=== PATIENT | male | born 1955 | race Caucasian/White ===

== ENCOUNTER 2017-10-05 06:18 | Day surgery (SDC) | payer BC ==
--- NOTE | 2017-10-04 18:39 | PREOPHP ---
DATE OF ADMISSION: 10/05/2017 REASON FOR ADMISSION: A 62-year-old patient is going to be admitted for diagnostic arthroscopy of t he left knee, partial medial and lateral meniscectomy, possibly repair, synovectomy, application of Harry dressing. HISTORY OF PRESENT ILLNESS: This 62-year-old patient has been experiencing knee pain for quite a wh ile. Conservative treatment resulted in limited benefit to the patient, and the patient has reques evan surgical intervention. PAST MEDICAL HISTORY: Hypertension. SOCIAL HISTORY: Nonsmoker, nondrinker. FAMILY HISTORY: Negative. PAST SURGICAL HISTORY: Injection in both knees. MEDICATIONS: 1. Hypertensive medication. 2. Sulindac. 3. B6. 4. B12. 5. Folic acid. 6. Baclofen. 7. Postop Bactrim and ibuprofen given. ALLERGIES: NO HISTORY OF ALLERGY TO MEDICATION. PHYSICAL EXAMINATION: SKIN: Within normal limits. EYES: PERRLA. HEAD AND NECK: Normocephalic. Trachea midline. Bilateral symmetrical carotid pulses. No mass, no bruit, no lymphadenopathy. CARDIOVASCULAR: Normal sinus rhythm. S1, S2 normal. No murmur. No JVD. No peripheral edema. LUNGS: Clear. ABDOMEN: Protuberant. No organomegaly. No mass. Bowel sounds present. GENITOURINARY AND RECTAL: Not done, not pertinent to this admission. MUSCULOSKELETAL: Height of 5 feet 10, weighing 218 pounds. Head and neck unremarkable. Upper extr emities normal with normal neurovascular examination. Spine clear. Both lower extremities look sym metrical in appearance. Range of motion 0 to 125 degrees. There is marked tenderness over the medi al tibiofemoral joint line. Positive Radha test. Sensory, motor, deep tendon reflexes are intac t. IMAGING: Radiologic report of the x-ray of the knees is not available for my interpretation. [facility] knee MRI was done in 2016, was indicative of subluxation of the medial meniscus, mild to modera te joint effusion, chondromalacia patella, synovitis and some chronic . DIAGNOSES: 1. Patellar crepitation, chondromalacia. 2. Internal derangement of right and left knees. 3. Torn menisci of right and left knees. 4. Synovitis of right and left knees. PLAN: Treatment plan, alternatives, risks and benefits discussed. The patient understands possibil ity of complications from surgery such as infection, bleeding, nerve damage, vascular damage, possib ility of deep venous thrombosis, pulmonary embolism, hypersensitivity from medication and even . [place] result may not be obtained depending on known or unknown factor or factors. Formal H and P is supposed to be done by PCP. Dictated By: IZZY SANCHEZ/JOSÉ MIGUEL Conf#: [id number] DID#: [id number]
[~2017-10-05] VITALS: Ht 177.8 cm; Wt 96.9 kg
[2017-10-05] VITALS (13 sets, daily range): BP systolic 113–139; BP diastolic 52–76; PULSE 65–85; RESP 17–22; Ht 177.8 cm; Wt 96.9 kg
[2017-10-05] MEDS ORDERED: ONDANSETRON 4 MG INJ IV PRN (06:30)
[2017-10-05] MEDS ORDERED: EPHEDrine SULFATE 50 MG/5 ML SYG IV PRN (06:30)
[2017-10-05] MEDS ORDERED: hydrALAzine 20 MG INJ IV PRN (06:30)
[2017-10-05] MEDS ORDERED: ATROPINE 1 MG/10 ML SYRINGE IV PRN (06:30)
[2017-10-05] MEDS ORDERED: FENTAnyl 50 MCG/ML VIAL IV PRN ×2 (06:30)
[2017-10-05] MEDS ORDERED: HYDROmorphONE (0.2 MG/ML) 10ML SYG IV PRN ×3 (06:30)
[2017-10-05] MEDS ORDERED: MEPERIDINE 25 MG INJ IV PRN (06:30)
[2017-10-05] MEDS ORDERED: DIPHENHYDRAMINE 50 MG INJ IV PRN (06:30)
[2017-10-05] MEDS ORDERED: morphine (1 MG/ML) 10ML SYRINGE IV PRN ×3 (06:30)
[2017-10-05] MEDS ORDERED: MIDAZOLAM 1 MG/ML 2 ML INJ IV PRN (06:30)
[2017-10-05] MEDS ORDERED: LABETALOL HCL 20MG INJ IV PRN (06:30)
[2017-10-05] MEDS ORDERED: OXYCODONE/ACETAMINOPHEN (5/325) TAB PO PRN ×2 (06:30)
[2017-10-05] MEDS ORDERED: NEOSTIGMINE 3 MG/3 ML SYRINGE ONE (06:31)
[2017-10-05] MEDS ORDERED: MIDAZOLAM 1 MG/ML 2 ML INJ ONE (06:31)
[2017-10-05] MEDS ORDERED: ROCURONIUM 50 MG INJ ONE (06:31)
[2017-10-05] MEDS ORDERED: PROPOFOL 20 ML ONE (06:31)
[2017-10-05] MEDS ORDERED: GLYCOPYRROLATE 0.4 MG INJ ONE (06:31)
[2017-10-05] MEDS ORDERED: LIDOCAINE 2% (SDV) 5 ML INJ ONE (06:31)
[2017-10-05] MEDS ORDERED: FENTAnyl 50 MCG/ML VIAL ONE (06:32)
[2017-10-05] MEDS ORDERED: ONDANSETRON 4 MG INJ ONE (06:35)
[2017-10-05] MEDS ORDERED: DEXAMETHASONE 4 MG/ML 1 ML INJ ONE (06:35)
[2017-10-05] MEDS ORDERED: SUGAMMADEX SODIUM 200 MG/2 ML VIAL IV ONE (06:36)
[2017-10-05] MEDS ORDERED: LOVA20TA PO (07:15)
[2017-10-05] MEDS ORDERED: LISI40TA9 PO (07:15)
[2017-10-05] MEDS ORDERED: ASPI81TA3 PO (07:15)
[2017-10-05] MEDS ORDERED: CEFAZOLIN 2 GM/50 ML (PMX) 50 ML IVPB SCH (07:30)
[2017-10-05] MEDS ORDERED: EPINEPHrine 1 MG/ML 30 ML INJ IRR ONE (08:04)
[2017-10-05] MEDS ORDERED: morphine SULFATE/PF (10 MG/10 ML) INJ ONE (08:15)
[2017-10-05] MEDS ORDERED: CEFAZOLIN 1 GM INJ ONE (08:17)
[2017-10-05] MEDS ORDERED: ALBUTEROL 0.083% (NEB) 2.5 MG/3 ML AMP ONE (08:18)
--- NOTE | 2017-10-05 08:52 | SIPON ---
Date/Time of Note Date/Time of Note DATE: 10/05/17 TIME: 08:46 Operative Report Preoperative Diagnosis Torn medial and lateral meniscus, synovitis of left knee Postoperative Diagnosis The same Operation/Procedure Performed Diagnostic scope, partial medial , lateral menisectomy plus synovectomy,and plica band releace application of Harry dressing Surgeon Izzy Benitez MD sales assistants and salespersons None Anesthesia: general Estimated blood loss: minimal Transfusion Required none Specimen None Grafts/Implants none Complications none IZZY BENITEZ MD Oct 05, 2017 08:52
[2017-10-05] MEDS ORDERED: HYDROCODONE/APAP (5/325) TAB PO PRN ×2 (09:00)
--- NOTE | 2017-10-05 10:15 | OPR ---
DATE OF OPERATION: PREOPERATIVE DIAGNOSIS: Torn medial and torn lateral meniscus, synovitis, left knee. POSTOPERATIVE DIAGNOSIS: Torn medial and torn lateral meniscus, synovitis, left knee, plica syndrom e. OPERATION PERFORMED: Diagnostic arthroscopy, partial medial meniscectomy, partial lateral meniscect francia, synovectomy, plica band release, application of Harry dressing. ANESTHESIA: General. BLEEDING: Minimal. COMPLICATIONS: None. OPERATIVE PROCEDURE: The patient was transferred to the operating room, placed on the operating [place] m table in supine position. General anesthesia was induced. Two gram of Ancef was given IV. Left knee was shaved, prepped, and draped in the routine fashion. Landmarks were marked and two anterior portals popliteal patellar tendon and one medial and one lateral. Operative arthroscopy was commen torey. Examination of suprapatellar pouch indicated medial plica band and mild synovitis in the supra patellar pouch and lateral debris. There was absence of loose body in medial and lateral gutter. T his plica band was released with Arthrocare and Bovie and a synovectomy was performed with coagulati on. Patella and trochlea was visualized. Trochlea showed grade III centralized chondromalacia to g roove and sutured and reminder was grade II to III. Trochlear patella indicating grade II to III ch ondromalacia. Going to the medial compartment, there was extensive grade IV chondromalacia of the m edial femoral condyle and also this consisted of 30% of the articular cartilage and remainder was gr renetta II to III. There was a complex tear of the middle and posterior third of the medial meniscus. Therefore, partial medial meniscectomy to stable margins was don. All debris was removed. There wa s mild synovitis anteriorly, again was shrunk with the coagulation. Tibial articular surface indica evan about 40% to 50%, grade IV chondromalacia. ACL was intact. Going to lateral compartment, artic ular surface indicating grade II and minimally early grade III chondromalacia and there was a flap t ear of the posterior third, middle third, and anterior third of the lateral meniscus. Therefore, pa rtial lateral meniscectomy to stable margins was done. There was moderate to extensive synovitis in the anterior part of the lateral compartment so synovectomy was performed with Arthrocare coagulati on. All debris was removed with extensive and copious amounts of saline irrigation. Portal was rama sed with benzoin and Steri-Strips. A 10 mg of Duramorph mixed with 10 mL of injectable saline was i njected into the knee. Sterile Harry dressing was applied. Procedure was terminated. General anes thesia was stopped. Patient was taken to recovery room in good and stable condition. Dictated By: IZZY SANCHEZ/JOSÉ MIGUEL Conf#: [id number] DID#: [id number]
== END 2017-10-05 10:45 | disposition home or self-care (01) ==
LOC: SDS 06:18
PROVIDERS: ATTEND Internal Medicine Endocrinology, Diabetes & Metabolism
DX: M23.201 Derangement of unspecified lateral meniscus due to old tear or injury, left knee (principal); I10 Essential (primary) hypertension; E78.5 Hyperlipidemia, unspecified
CPT/HCPCS: 29880; C1713; J0171; J0690; J1100; J2250; J2274; J2405; J2710; J3010; Z7512; Z7610

== ENCOUNTER 2018-09-20 06:11 | Day surgery (SDC) | END 2018-09-20 11:15 | disposition home or self-care (01) ==